=== PATIENT | female | born 1970 | race Two or more races ===

== ENCOUNTER 2023-09-14 10:08 | Emergency (ER) | payer OTHER, SELFPAY ==
[2023-09-14 10:09] VITALS: BP 143/73
[2023-09-14 10:32] LABS: % Basophils 0.2 % (0-2); % Eosinophils 0.8 % (0-6); % Immature Granulocytes 0.2 % (0-0.5); % Monocytes 9.6 % (1.7-9.3); % Neutrophils 54.2 % (42.2-75.2); Absolute Lymphocytes 1.9 10^3/uL (1.2-3.4); Absolute Monocytes 0.5 10^3/uL (0.1-0.6); Absolute Neutrophils 2.9 10^3/uL (1.4-6.5); Hematocrit 39.9 % (37.0-47.0); Hemoglobin 13.8 g/dL (12.0-16.0); Mean Corp Hgb Conc. 34.6 g/dL (33.0-37.0); Mean Corpuscular Hgb 29.7 pg (27.0-31.0); Mean Platelet Volume 10.1 fL (7.4-10.4); Nucleated Red Blood Cells % 0 %; Platelet Count 270 10^3/uL (130-400); Red Blood Cell Count 4.64 10^6/uL (4.20-5.40); White Blood Cell Count 5.3 10^3/uL (4.8-10.8)
[2023-09-14 10:46] LABS: ALT (SGPT) 29 U/L (0-35); AST (SGOT) 21 U/L (14-36); Albumin 4.5 g/dl (3.5-5.0); Alkaline Phosphatase 99 U/L (38-126); Blood Urea Nitrogen 23 mg/dl (7-17); Calcium 10.2 mg/dl (8.4-10.2); Carbon Dioxide 27 mmol/L (22-30); Chloride 107 mmol/L (98-107); Glucose 103 mg/dl (70-99); Potassium 5.2 mmol/L (3.5-5.1); Sodium 139 mmol/L (135-145); Total Protein 7.2 g/dl (6.3-8.2); eGFR > 60.00
[2023-09-14 10:58] LABS: Troponin I < 0.012 ng/ml
--- NOTE | 2023-09-14 11:38 | ED.GENMED ---
History of Present Illness
General
Chief Complaint: Cardiac Symptoms
Source: patient and family
Exam Limitations: none
Time Seen by Provider: 09/14/23 11:10
Nursing documentation reviewed up to this point in time: agreed with
Travel History
Have you had any contact with someone who has COVID-19?: No
Do you have any symptoms of coronavirus? Fever > 100 degrees, chills, cough, shortness of breath, sore throat, loss of taste or smell, muscle aches, or headache?: No
History of Present Illness
History of Present Illness:
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
in the she saw ocean fishing guide in [facility] also a specialist ocean fishing guide at [facility] told that she did have Tfbto-Kgpzuorat-Bhjka, she takes atenolol as needed for palpitations she has had Holter monitor was unremarkable,
last evening from 12 midnight to 4 AM she had palpitations, resolved with deep breathing exercises return around 9 AM, again is all with deep breathing exercises she is now asymptomatic no chest pain no shortness of breath no fever no chills no leg
edema her plan is to go back to [place] in a week or 2
Past History
Past History
ED Past Medical History: Arrthythmia (See HPI)
Social History
Tobacco: Non-smoker
Alcohol: Occasional
Drug: None
Living: with family
Family History
Family History: Hypertension; Negative Sudden
Review of Systems
Review of Systems
All Other Systems: Not applicable
Constitutional: Denies fever or fatigue
EENT: Reports no symptoms
Respiratory: Reports no symptoms
Cardiac: Reports palpitations; Denies chest pain
ABD/GI: Reports no symptoms
: Reports no symptoms
Musculoskeletal: Reports no symptoms
Endocrine: Reports no symptoms
Phy Exam
Physical Exam
Physical Exam:
Physical Exam
General: no apparent distress, not acutely ill
Neck: No jaundice
Heart: s1/s2 regular rate and rhythm, no murmur. equal radial pulses.
Lungs: no acute respiratory distress. clear bilaterally
Neuro: alert and oriented. no focal neurological deficits
Skin: no rash
Psychiatric: well kept. interactive and cooperative
Extremities: no edema. no calf tenderness.
Scores
Heart Score for Chest Pain Patients
STEMI patient?: No
History: Slightly or Non-Suspicious
ECG: Normal
Age: >45 - <65 years
Risk Factors: 1 or 2 Risk Factors
Troponin: </= Normal Limit
Heart Score for Chest Pain Patients: 2
Heart Score Risk: 2.5% MACE over next 6 weeks
Course
Orders/Labs/Results
Orders:
Orders
09/14/23 10:13
ECG [Electrocardiogram (*1)] Urgent
Reason for Study: Palpitations
EKG- Treatment ONCE
09/14/23 10:23
Complete Blood Count/With Diff Urgent
Comprehensive Metabolic Panel Urgent
Troponin I Urgent
Abnormal Lab Results
09/14/23
10:23
Monocytes % 9.6 H %
(1.7-9.3)
Potassium 5.2 H mmol/L
(3.5-5.1)
BUN 23 H mg/dl
(7-17)
Glucose 103 H mg/dl
(70-99)
09/14/23 10:23
09/14/23 10:23
Vital Signs
Initial and Last Documented VS:
Initial Vital Signs
Temp Pulse Resp BP Pulse Ox
99.1 F 63 18 143/73 100
09/14/23 10:09 09/14/23 10:09 09/14/23 10:09 09/14/23 10:09 09/14/23 10:09
Last Documented Vital Signs
Temp Pulse Resp BP Pulse Ox
99.1 F 63 18 143/73 100
09/14/23 10:09 09/14/23 10:09 09/14/23 10:09 09/14/23 10:09 09/14/23 10:09
MDM/Problems Addressed
Differential Diagnosis Includes:
Palpitations PVCs PACs A-fib other arrhythmia
Doubt ACS or PE by history and physical
MDM/Problems Addressed:
Palpitation
Chronic conditions affecting care: Arrhythmia
Acute Exacerbation and/or Progression of Chronic Illness: Arrhythmia
*Pulse Oximetry
Patient hypoxic: no
Comment: 100
*EKG
Interpreted by ED Provider?: Yes
Interpretation: normal
Comparison EKG: no comparison EKG present
Heart Rate: 78
Rate: normal
Ischemia: no ischemia
*Urban Gardening Specialist Interpretation
Rate: normal
Interpretation: normal
Heart Rate: 57
Rhythm: sinus
*Critical Care Note
Total Time (30-74mins, 75-104mins- exclusive of procedures): Not Applicable
Data Reviewed
Source: patient and family
Update Note
Update Note:
Update vital signs are stable, heart rate in the 50s pulse ox 100% on room air
Sounds like her her issues are not new they have been extensively worked up in [facility] in the for symptoms of moody and [facility], workup negative thus far here, will keep on cardiac rehabilitation program director to see if she has any recurrence
12:40 PM patient has been on a monitor here no arrhythmia
ED Attending Note
-
Portions of this chart may have been created with voice recognition software.� Occasional wrong word or��sound alike� substitutions may have occurred due to the inherent limitations of voice recognition software.
Discharge Plan
Departure
Patient Disposition: Home (Routine Discharge)
Date of Disposition: 09/14/23
Time of Disposition: 12:39
Patient with high blood pressure during this ER visit?: No
Condition: Good
Covid-19: Not Applicable
Discharge Problem:
Heart palpitations
Instructions: Palpitations ED
Referrals:
Gertrudis Correa MD [Family Provider] - Next open appointment
Activity Restrictions/Additional Instructions:
Follow-up with your family doctor and ocean fishing guide
Interventions
Interventions:
*ED COVID-19 Vaccine History Last Done: 09/14/23 10:09
Discharge Date and Time
Print Language: SLOVAK
== END 2023-09-14 13:05 | disposition home or self-care (01) ==
LOC: EMR 10:08
PROVIDERS: EMERGENCY PHYSICIAN Emergency Medicine; FAMILY PHYSICIAN Family Medicine
DX: R00.2 Palpitations (principal); I49.9 Cardiac arrhythmia, unspecified
CPT/HCPCS: 99284; 80053; 84484; 85025; 93005